=== PATIENT | male | born 1940 | race Caucasian/White ===

== ENCOUNTER 2020-06-16 19:21 | Emergency (ER) | payer OTHER, MEDICARE ==
[~2020-06-16] VITALS: Ht 182.9 cm; Wt 74.8 kg
--- NOTE | ~2020-06-16 | EMS ---
[facility] [address] [place] [address] EMS Patient Care Report Name: OTTONIEL COLMENARES Room #: DEP LATOYA Santos#: [id number] Admission: 06/16/20 Attend Phys: Discharge: 06/16/20 Date of : 40 Report #: [id number] THIS REPORT FOR: //name// Report Transmitted: 06/16/2020 19:29 EMS Care Summary [place], [place]/[facility] Incident [id number] @ 06/16/2020 18:57 Incident Location [address] [place] [address] Patient OTTONIEL COLMENARES Male, 80 Years 1940 Patient Address [id number] [place] [address] Patient History Asthma,Chronic Obstructive Pulmonary Disease (COPD), Patient Allergies Sulfa, Patient Medications Lipitor, Chief Complaint Choking Disposition Transported No Lights/[place] Dispatch Reason Choking Transported To [facility] Narrative Responded to the address for report of a patient choking. Arrived on scene at the single family residence and found the patient being escorted out to the ambulance by fire personnel. The fire personnel on scene gave report to EMS and advised that the patient reported eating dinner approximately 15 minutes prior [facility] [address] [place] [address] EMS Patient Care Report Name: OTTONIEL COLMENARES Room #: DEP LATOYA Santos#: [id number] Admission: 06/16/20 Attend Phys: Discharge: 06/16/20 Date of : 40 Report #: [id number] to their arrival and advised that the patient believed he still had a piece of steak stuck in his throat. The patient was then found alert and oriented x4 with a GCS of 15 talking normally and coughing up phlegm. The patient was then assisted into the back of the ambulance and secured for transport. The patient was questioned initially on a chief complaint and the patient advised that he was experiencing shortness of breath. The patients lungs where auscultated and it was determined that the patient had diminished lung sounds do to his COPD. The patient was then treated and placed on a nasal cannula at 4 LPM. The patient was reassessed and advised that he felt like he was able to breath much better but it felt as if something was still in his throat. The patient had no further changes in mental status or condition. During transport. Patient care was transferred to the receiving facility without incident. Med unit back in service. Initial Vitals @19:11P: 86,R: 18,BP: 169/79,Pain: 0/10,GCS: 15,CO: 3,SpO2: 98,Revised Trauma: 12,AK Suspected: false @19:13P: 77,R: 18,BP: 167/78,Pain: 0/10,GCS: 15,SpO2: 99,Revised Trauma: 12, Assessments @19:07MENTAL:Person Oriented,Time Oriented,Event Oriented,Place Oriented,SKIN:HEENT:Head/Face: No Abnormalities,LUNG SOUNDS:General: No Abnormalities,Left Upper: No Abnormalities,Right Upper: No Abnormalities,Left Lower: No Abnormalities,Right Lower: No Abnormalities,ABDOMEN:General: No Abnormalities,Left Upper: No Abnormalities,Right Upper: No Abnormalities,Left Lower: No Abnormalities,Right Lower: No Abnormalities,PELVIS//GI:No Abnormalities,EXTREMITIES:Left Arm: No Abnormalities,Right Arm: No Abnormalities,Left Leg: No Abnormalities,Right Leg: No Abnormalities,PULSE:NEURO:No Abnormalities,@19:30MENTAL:Event Oriented,Place Oriented,Person Oriented,Time Oriented,SKIN:HEENT:Head/Face: No Abnormalities,Neck/Airway: No Abnormalities,LUNG SOUNDS:ABDOMEN:PELVIS//GI:No Abnormalities,EXTREMITIES:Left Arm: No Abnormalities,Right Arm: No Abnormalities,Left Leg: No Abnormalities,Right Leg: No Abnormalities,PULSE:NEURO:No Abnormalities, Impression Foreign Body in Larynx Procedures @19:07ALS AssessmentResponse: UnchangedSucceeded@19:283-Lead ECGSucceeded@19:08Oxygen FlowRate: 4 Device: Nasal Cannula (NC) Response: UnchangedSucceeded Timeline 18:56,Call Received 18:56,Dispatch Notified [address] [address] EMS Patient Care Report Name: OTTONIEL COLMENARES Room #: MARY Santos#: [id number] Admission: 06/16/20 Attend Phys: Discharge: 06/16/20 Date of : 40 Report #: [id number] 18:57,Dispatched 18:57,En Route 19:06,On Scene 19:07,At Patient 19:07,ALS Assessment,Response: UnchangedSucceeded, 19:08,Oxygen FlowRate: 4 Device: Nasal Cannula (NC) Response: UnchangedSucceeded, 19:11,BP: 169/79 M,PULSE: 86,RR: 18 R,SPO2: 98 Ox,ETCO2: ,BG: ,PAIN: 0,GCS: 15, 19:11,Depart Scene 19:13,BP: 167/78 M,PULSE: 77,RR: 18 R,SPO2: 99 Ox,ETCO2: ,BG: ,PAIN: 0,GCS: 15, 19:18,At Destination 19:28,3-Lead ECG,Succeeded, 19:36,Call Closed Disclaimer [email or web address] Copyright 2020 [employer] This EMS Care Summary contains data elements from the applicable legal record (which may be displayed differently). It is designed to provide pertinent information for the following purposes: continuity of care, clinical quality, and state data reporting. The complete legal record is available to ED staff and administrators of the receiving hospital in [employer]'s Patient Tracker. All data is provided "as is."
[~2020-06-16 19:21] MED LIST: HYDROCHLOROTH12.5 M2 PO; LIDOCAINE VISC100 M1 MM; LIPITOR 20 MG T20 M1 PO; LOPERAMIDE 2 MG2 M1 PO
[2020-06-16] MEDS ORDERED: NORVASC5 MG PO (19:26)
[2020-06-16] MEDS ORDERED: WIXELA 250-501 EACH INH (19:26)
[2020-06-16] MEDS ORDERED: MYRBETRIQ50 MG PO (19:26)
[2020-06-16 20:24] VITALS: BP 128/59
== END 2020-06-16 20:24 | disposition left against medical advice (07) ==
LOC: ER 19:21
DX: T17.228A Food in pharynx causing other injury, initial encounter (principal); J45.909 Unspecified asthma, uncomplicated; E78.00 Pure hypercholesterolemia, unspecified; I10 Essential (primary) hypertension; J44.9 Chronic obstructive pulmonary disease, unspecified; F17.210 Nicotine dependence, cigarettes, uncomplicated; Z79.899 Other long term (current) drug therapy; Z88.2 Allergy status to sulfonamides; X58.XXXA Exposure to other specified factors, initial encounter; Y93.89 Activity, other specified; Y92.89 Other specified places as the place of occurrence of the external cause; Y99.8 Other external cause status